=== PATIENT | female | born 1965 | race Caucasian/White ===

== ENCOUNTER 2019-02-28 09:17 | Emergency (ER) | payer OTHER ==
[~2019-02-28] VITALS: Ht 157.5 cm; Wt 67.9 kg
--- NOTE | 2019-02-28 09:42 | NUR ---
pt to room at this time. pt changed into gown
--- NOTE | 2019-02-28 09:42 | NUR ---
53 y/o FEMALE PRESENTS TO ED WITH C/O LUMP IN CHEST. PER PT "I GOT THIS LUMP A FEW MONTHS AGO. IT'S JUST GOTTEN BIGGER. IT IS RIGHT IN THE CENTER OF MY RIB CAGE, BY MY BREAST PLATE. OVER THE LAST FEW DAYS IT'S GOTTEN HARD TO BREATHE. I DON'T EVEN WANT TO EAT." NADN. PT ABLE TO SPEAK IN FULL SENTENCES AND EXPRESS HER CONCERNS WITHOUT BECOMING SHORT OF BREATH. NO C/O N/V/D, TRAUMA, SYNCOPE, CP. PT PLACED ON CONT PULSE OX,NIBP
--- NOTE | 2019-02-28 10:27 | NUR ---
BEDSIDE REPORT TO KARIN LOPEZ.
--- NOTE | 2019-02-28 10:30 | NUR ---
PT REPORT FROM KARIN GONZALEZ. PT CARE TO BE ASSUMED. REGISTRATION AT BS.
--- NOTE | 2019-02-28 10:40 | NUR ---
PT AMBULATORY TO & FROM [facility] W/OUT INCIDENT; GAIT STEADY.
[2019-02-28] MEDS ORDERED: NAPROXEN 500 MG TABLET PO ONE (11:00)
[2019-02-28] MEDS ORDERED: ASPIRIN 81 MG TABLET CHEW PO ONE (11:00)
[2019-02-28] MEDS ORDERED: ASPIRIN 81 MG TABLET CHEW ONE (11:08)
[2019-02-28] MEDS ORDERED: NAPROXEN 500 MG TABLET ONE (11:08)
--- NOTE | 2019-02-28 11:09 | NUR ---
PT IN RADIOLOGY
--- NOTE | 2019-02-28 11:13 | NUR ---
PT RETURNED FROM RADIOLOGY. PT C/O EPIGASTRIC AREA LUMP AND MASS UNDER LT BREAST. FIRM LUMP PALPABLE IN EPIGASTRIC AREA. FIRMNESS UNDER LT BREAST NOTED. PT DENIES TRAUMA. SKIN INTACT W/OUT DISCOLORATION. REPORTS DIFFICULTY BREATHING THAT INCREASES W/ ACTIVITY. HX: ASTHMA, HYST. CERVICAL CONE BX DONE YEARS AGO, PER PT. FATHER: COLON CA - STILL ALIVE. LAST ORAL: BEVERAGES ABOUT 0930.
--- NOTE | 2019-02-28 11:22 | NUR ---
ASA AND NAPROXEN GIVEN PER EMAR
[2019-02-28 13:05] VITALS: BP 136/72
== END 2019-02-28 13:07 | disposition home or self-care (01) ==
LOC: ED 10:25
DX: R22.2 Localized swelling, mass and lump, trunk (principal)
CPT/HCPCS: 71046; 93005; 99283

== ENCOUNTER → 2019-03-13 | Outpatient (CLI) | payer OTHER | END | disposition home or self-care (01) | LOC: CFH 13:57 | PROVIDERS: ATTEND Nurse Practitioner Family | DX: Z12.31 Encounter for screening mammogram for malignant neoplasm of breast (principal); N64.89 Other specified disorders of breast | CPT/HCPCS: 76642; 77066; G0279 ==

== ENCOUNTER 2019-08-08 10:56 | Emergency (ER) | payer SELFPAY ==
[~2019-08-08] VITALS: Ht 157.5 cm; Wt 64.0 kg
--- NOTE | 2019-08-08 11:23 | NUR ---
pt resting in [facility]. foot remains bandaged for provider at pt request. pt states she was working in the yard and tripped over a tree stump. pts foot came down on another tree stump and states she punctured her toe.
[2019-08-08] MEDS ORDERED: HYDROcodone/APAP 5/325 TABLET PO ONE (12:30)
[2019-08-08] MEDS ORDERED: HYDROcodone/APAP 5/325 TABLET ONE (12:43)
[2019-08-08] MEDS ORDERED: LIDOCAINE-MPF 1%, 5ML INFIL ONE (13:00)
[2019-08-08] MEDS ORDERED: LIDOCAINE-MPF 1%, 5ML ONE (13:05)
[2019-08-08] MEDS ORDERED: NEOSPORIN OINT. PKT 1 PACKET ONE (13:18)
[2019-08-08 13:36] VITALS: BP 141/67
== END 2019-08-08 14:07 | disposition home or self-care (01) ==
LOC: ED 11:50
DX: S91.311A Laceration without foreign body, right foot, initial encounter (principal); J45.909 Unspecified asthma, uncomplicated; Z87.891 Personal history of nicotine dependence; W18.41XA Slipping, tripping and stumbling without falling due to stepping on object, initial encounter; Y93.89 Activity, other specified; Y92.098 Other place in other non-institutional residence as the place of occurrence of the external cause; Y99.8 Other external cause status
CPT/HCPCS: 12001; 99283

== ENCOUNTER 2019-09-10 17:30 | Emergency (ER) | payer OTHER ==
[~2019-09-10] VITALS: Ht 157.5 cm; Wt 64.5 kg
[2019-09-10 17:33] VITALS: BP 157/72
[2019-09-10] MEDS ORDERED: DIPH,PERTUSS(ACELL),TET VAC/PF 0.5 ML IM-VACC ONE ×2 (18:00→19:30)
--- NOTE | 2019-09-10 19:06 | NUR ---
LEASING ASSOCIATE: PT. TO ROOM FROM LOBBY AT THIS TIME.
== END 2019-09-10 19:51 | disposition home or self-care (01) ==
LOC: ED 19:46
DX: L03.115 Cellulitis of right lower limb (principal); M79.5 Residual foreign body in soft tissue; J45.909 Unspecified asthma, uncomplicated
CPT/HCPCS: 90471; 90715; 99283